=== PATIENT | male | born 1975 | race American Indian/Alaskan Native ===

== ENCOUNTER 2016-03-15 21:39 | Emergency (ER) | payer OTHER ==
[2016-03-15 21:50] VITALS: BP 147/96
[2016-03-16] MEDS ORDERED: FIORICET PO ONE (01:18)
--- NOTE | 2016-03-16 01:25 | Emergency Department Report ---
ED Headache HPI - General Chief Complaint: Headache Stated Complaint: HEAD PAIN LT FRONTAL Time Seen by Provider: 03/16/16 01:18 - History of Present Illness Initial Comments: Pt. is a 40 y.o male who presents to ED c/o intermittent, throbbing, non radiation 8/10 intensity type headache x 3 days. Pt. states pain located to Left temporal region. Patient states first episode of headache. Pt. admits pain is worse with straining. Patient admits some sinus fluid vision the patient had some nausea but no vomiting. Pt. denies fever, chills, vomiting, trauma, vision impairment, loss of vision Quality: moderate, throbbing Recent Head Trauma: no recent headache/trauma Modifying Factors: worse with: movement Associated Symptoms: denies: facial pain, nasal congestion, nasal drainage, sinus infection Allergies/Adverse Reactions: Allergies No Known Allergies Allergy (Unverified 03/15/16 21:55) Home Medications: Ambulatory Orders Butalb/Acetamin/Caff 50-325-40 [Fioricet] 1 tab PO Q6HR PRN 15 Days 03/16/16 ED Review of Systems ROS: Stated complaint: HEAD PAIN LT FRONTAL Other details as noted in HPI Constitutional: denies: chills, fever Eyes: denies: eye pain, eye discharge, vision change ENT: denies: ear pain, throat pain, dental pain, hearing loss Respiratory: denies: cough, shortness of breath, SOB with exertion, wheezing Cardiovascular: denies: chest pain, palpitations Endocrine: no symptoms reported Gastrointestinal: nausea. denies: abdominal pain, vomiting, diarrhea Genitourinary: denies: urgency, dysuria Musculoskeletal: denies: back pain, joint swelling, arthralgia Skin: denies: rash, lesions Neurological: headache. denies: weakness, numbness, paresthesias, confusion, abnormal gait, vertigo Psychiatric: denies: anxiety, depression Hematological/Lymphatic: denies: easy bleeding, easy bruising ED Past Medical Hx - Past Medical History Previous Medical History?: No - Surgical History Past Surgical History?: Yes Additional Surgical History: left shoulder - Social History Smoking Status: Current Every Day Smoker Substance Use Type: None - Medications Home Medications: Home Medications Medication Instructions Recorded Confirmed Last Taken Type Butalb/Acetamin/Caff 50-325-40 1 tab PO Q6HR PRN 15 Days 03/16/16 Unknown Rx [Fioricet] ED Physical Exam - General Limitations: No Limitations General appearance: alert, in no apparent distress - Head Head exam: Present: atraumatic, normocephalic - Eye Eye exam: Present: normal appearance, PERRL, EOMI Pupils: Present: normal accommodation - ENT ENT exam: Present: normal exam, mucous membranes moist - Neck Neck exam: Present: normal inspection, full ROM. Absent: tenderness, meningismus, lymphadenopathy, thyromegaly - Respiratory Respiratory exam: Present: normal lung sounds bilaterally. Absent: respiratory distress, wheezes, rales, rhonchi, stridor - Cardiovascular Cardiovascular Exam: Present: regular rate, normal rhythm. Absent: systolic murmur, diastolic murmur, rubs, gallop - GI/Abdominal GI/Abdominal exam: Present: soft, normal bowel sounds. Absent: distended, tenderness, guarding - Rectal Rectal exam: Present: deferred - Extremities Exam Extremities exam: Present: normal inspection - Back Exam Back exam: Present: normal inspection - Neurological Exam Neurological exam: Present: alert, oriented X3, CN II-XII intact, normal gait. Absent: motor sensory deficit - Expanded Neurological Exam Expanded Neurological exam: Absent: memory loss-recent event, ataxia, tremor Patient oriented to: Present: person, place, time Speech: Present: fluid speech Cranial nerves: EOM's Intact: Normal Cerebellar function: Finger to Nose: Normal Motor strength exam: RUE: 5, LUE: 5, RLE: 5, LLE: 5 Best Eye Response ([place]): (4) open spontaneously Best Motor Response (Jackson): (6) obeys commands Best Verbal Response (Jackson): (5) oriented Matheus Total: 15 - Psychiatric Psychiatric exam: Present: normal affect, normal mood - Skin Skin exam: Present: warm, dry, intact, normal color. Absent: rash ED Course Vital Signs 03/15/16 21:45 Temperature 99 F Pulse Rate 81 Respiratory 18 Rate Blood Pressure 147/96 O2 Sat by Pulse 100 Oximetry ED Medical Decision Making - Medical Decision Making 40-year-old male presents with a migraine headache versus Ocular migraine. ED course: Patient received 2 tablets of Fioricet. Discussed the patient and therapy of Fioricet at home. Follow-up with neurologist as referred as well as primary care physician for further evaluation physician if headache continues. Patient understands and verbally comply for follow-up Critical care attestation.: If time is entered above; I have spent that time in minutes in the direct care of this critically ill patient, excluding procedure time. ED Disposition Clinical Impression: Migraine headache Disposition: DISCHARGED TO HOME OR SELFCARE Is pt being admited?: No Does the pt Need Aspirin: No Condition: Stable Instructions: Migraine Headache (ED), Ocular Migraine (ED) Prescriptions: Butalb/Acetamin/Caff 50-325-40 [Fioricet] 1 tab PO Q6HR PRN 15 Days PRN Reason: Headache Referrals: [facility] [Outside] - 3-5 Days [facility] [Outside] - 3-5 Days [facility] [Outside] - 3-5 Days RAINER THAPA MD [Staff Physician] - 3-5 Days MIYA SANTIAGO MD [Radiologist] - 3-5 Days CELSO REHMAN MD [Staff Physician] - 3-5 Days KUSH HERNANDEZ MD [Staff Physician] - 3-5 Days Forms: Work/School Release Form(ED) Time of Disposition: 01:41
== END 2016-03-16 02:20 | disposition home or self-care (01) ==
LOC: ED 21:39
DX: G43.909 Migraine, unspecified, not intractable, without status migrainosus (principal); F17.200 Nicotine dependence, unspecified, uncomplicated
CPT/HCPCS: 99283